=== PATIENT | female | born 1955 | race Caucasian/White ===

== ENCOUNTER → 2021-07-20 | Outpatient (CLI) | payer OTHER, MEDICAID ==
--- NOTE | 2021-07-20 14:54 | 2DMMODE ---
[place] [address] 2 D/M-MODE ECHOCARDIOGRAM Name: CESAR POTTER Room: [facility]#: [id number] Admission: 07/20/21 Attend Phys: Cesar Glass, Discharge: Date of : 53 Date of Service: 07/20/21 1454 Report #: [id number] THIS REPORT FOR: cc: DUSTIN OTTO MD, MALATHI MD Liston, Michael J. MD [facility] ~ APPROVED REPORT Study performed: 07/20/2021 14:34:57 EXAM: Comprehensive 2D, Doppler, and color-flow Echocardiogram Patient Location: Out-Patient BSA: 1.86 HR: 141 bpm Rhythm: Atrial Fibrillation Other Information Study Quality: Good Indications Chest Pain 2D Dimensions IVSd: 8.24 (7-11mm) LVOT Diam: 20.26 (18-24mm) LVDd: 44.86 mm PWd: 10.16 (7-11mm) Ascending Ao: 30.61 (22-36mm) LVDs: 30.37 (25-40mm) Aortic Root: 28.43 mm Volumes Left Atrial Volume (Systole) LA ESV Index: 20.30 mL/m2 Aortic Valve AoV Peak Macario.: 1.14 m/s AO Peak Gr.: 5.23 mmHg LVOT Max P.21 mmHg AO Mean Gr.: 2.75 mmHg LVOT Mean P.59 mmHg LVOT Max V: 0.55 m/s AO V2 VTI: 14.70 cm LVOT Mean V: 0.35 m/s SARKIS (VTI): 2.02 cm2 LVOT V1 VTI: 9.22 [place] [address] 2 D/M-MODE ECHOCARDIOGRAM Name: CESAR POTTER Room: [facility]#: [id number] Admission: 07/20/21 Attend Phys: Cesar Glass, Discharge: Date of : 53 Date of Service: 07/20/21 1454 Report #: [id number] MV Decel. Time: 219.63 ms MV PHT: 63.69 ms MVA (PHT): 3.45 cm2 TDI Medial E' Macario.: 0.09 m/s Lateral E' Macario.: 0.12 m/s Pulmonary Valve PV Peak Macario.: 0.72 m/s PV Peak Gr.: 2.06 mmHg Tricuspid Valve RAP Estimate: 5.00 mmHg TR Peak Gr.: 20.56 mmHg RVSP: 25.56 mmHg PA Pressure: 25.56 mmHg Left Ventricle The left ventricle is normal size. There is global hypokinesis with apical akinesis. There is normal left ventricular wall thickness. Left ventricular systolic function is moderately decreased. LVEF is 35-40%. This study is not technically sufficient to allow evaluation of the LV diastolic function due to atrial flutter. Right Ventricle The right ventricle is normal size. The right ventricular systolic function is normal. Atria Left atrium is dilated. Right atrium is dilated. Aortic Valve The aortic valve is normal in structure. No aortic regurgitation is present. There is no aortic valvular stenosis. Mitral Valve The mitral valve is normal in structure. Mild mitral regurgitation. No evidence of mitral valve stenosis. Tricuspid Valve The tricuspid valve is normal in structure. Mild tricuspid regurgitation. Pulmonic Valve The pulmonary valve is normal in structure. There is no [place]mon[place] [address] 2 D/M-MODE ECHOCARDIOGRAM Name: CESAR POTTER [id number] Admission: 07/20/21 Attend Phys: Cesar Glass, Discharge: Date of : 53 Date of Service: 07/20/21 1454 Report #: [id number] Great Vessels The aortic root is normal in size. IVC is normal in size and collapses >50% with inspiration. Pericardium There is no pericardial effusion. <Conclusion> The left ventricle is normal size. There is normal left ventricular wall thickness. Left ventricular systolic function is moderately decreased. LVEF is 35-40%. This study is not technically sufficient to allow evaluation of the LV diastolic function due to atrial flutter. There is global hypokinesis with apical akinesis. Left atrium is dilated. Right atrium is dilated. Mild mitral regurgitation. Mild tricuspid regurgitation. IVC is normal in size and collapses >50% with inspiration. Atrial flutter with 2 1 conduction. <ELECTRONICALLY SIGNED> By: Artemio Fregoso MD, FACC 07/20/21 1454 1454 1454 Artemio Fregoso MD, FACC /INF
== END ==
LOC: M.CRD 06-22 09:44 → M.NUC 13:00 → M.CRD 13:17
PROVIDERS: ATTEND Internal Medicine
DX: I08.1 Rheumatic disorders of both mitral and tricuspid valves (principal); I25.10 Atherosclerotic heart disease of native coronary artery without angina pectoris; R07.9 Chest pain, unspecified; R06.02 Shortness of breath; I48.20 Chronic atrial fibrillation, unspecified

== ENCOUNTER → 2021-08-10 | Outpatient (CLI) | payer OTHER, MEDICAID ==
--- NOTE | 2021-08-10 14:50 | CARDNUC ---
[place] [address] CARDIAC NUCLEAR IMAGING REPORT Name: CESAR POTTER Room: [facility]#: [id number] Admission: 08/10/21 Attend Phys: Cesar Glass, Discharge: Date of : 53 Date of Service: 08/10/21 1449 Report #: [id number] THIS REPORT FOR: cc: DUSTIN OTTO MD, MALATHI MD Biggs, F. Douglas MD [facility] ~ APPROVED REPORT Study performed: 08/10/2021 09:06:19 Exam: Nuclear Stress Test Indication: Chest pain Patient Location: Out-Patient Stress Tech: art Stress Nurse: Art Narvaez RN Ht: 5 ft 6 in Wt: 190 lbs BSA: 1.96 m2 BMI: 30.66 Medical History Medical History: Atrial Fibrillation, CAD non obstructive, COPD, Diabetes, HTN, Hyperlipidemia Medications: apixaban, atorvastatin, digoxin, zetia, lasix, metoprolol, k dur Allergies: asa, lidocaine, bactrim, chocolate, latex, iodine, flu and pneumonia vaccines Cardiac Risk Factors: Age, DM, FHX of CAD, HTN, Hyperlipidemia Exercise History: Sedentary Stress Test Details Stress Test: Pharmacologic stress testing performed using 0.4 mg of regadenoson per 5 mL given IV over 10 seconds. Reason for pharmacologic stress test: paraplegic. HR Resting HR: 115 bpm Max Heart Rate (APMHR): 153 bpm Max HR Achieved: 143 bpm Target HR (85% APMHR): 130 bpm % of APMHR: 93 Recovery HR: 138 bpm HR response to stress: Normal [place] [address] CARDIAC NUCLEAR IMAGING REPORT Name: ABBEYCESAR Room: [facility]#: [id number] Admission: 08/10/21 Attend Phys: Cesar Glass, Discharge: Date of : 53 Date of Service: 08/10/21 1449 Report #: [id number] Resting BP: 156/95 mmHg Max BP: 116/75 mmHg BP response to stress: Normal blood pressure response to stress. ECG Resting ECG: Atrial Fibrillation with nonspecific T wave abnormalities Stress ECG: Atrial fibrillation with nonspecific T wave abnormality ST Change: None Arrhythmia: Atrial fibrillation Recovery ECG: Atrial fibrillation with nonspecific T wave abnormalities Recovery ST Change: None Recovery Arrhythmia: Atrial fibrillation Clinical Reason for Termination: Completed protocol Stress Symptoms: None Stress ECG Conclusion Normal hemodynamic response to pharmacologic stress. Clinical: Non-ischemic Non-diagnostic pharmacologic EKG stress due to failure to attain target HR. NM EXAM: Myocardial Perfusion REST/STRESS Resting Data Rest SPECT myocardial perfusion imaging was performed in supine position 30 minutes following the intravenous injection of 10.6 mCi of Tc-99m Sestamibi. Time of rest injection: 07:55 The images were gated to evaluate regional wall motion and calculate left ventricular ejection fraction. Administration Route: IV Administration Site: Left Pharmacologic Stress Pharmacologic stress test was performed by injecting Regadenoson 0.4 mg IV push followed by the intravenous injection of 30.1 mCi of Tc-99m Sestamibi. Time of stress injection: 09:10 Administration Route: IV Administration Site: [place] [address] CARDIAC NUCLEAR IMAGING REPORT Name: ABBEYCESAR Room: [facility]#: [id number] Admission: 08/10/21 Attend Phys: Cesar Glass, Discharge: Date of : 53 Date of Service: 08/10/21 1449 Report #: [id number] Heart Rate at time of stress injection: 135 bpm. Gated Stress SPECT was performed 45 minutes after stress injection. The images were gated to evaluate regional wall motion and calculate left ventricular ejection fraction. Study Quality Study: Good Artifact: No artifact No artifact Lung Uptake: Normal Study Data At rest, the left ventricular ejection fraction was 59%.. Post stress, the left ventricular ejection was 31%.. SSS: 7 SRS: 8 SDS: -1 TID = 1.16. Perfusion The resting study demonstrated a small mild lateral defect. There was excessive bowel uptake however. The post stress images were normal. There were no clear-cut defects. There was however again excessive bowel uptake Images were reviewed using SPARQ. Wall Motion Normal left ventricular wall motion. Nuclear Conclusion ECG Findings: non-diagnostic Clinical Findings: negative for ischemia Nuclear Findings: negative for ischemia Exercise Capacity: not assessed Left Ventricular Function: normal at rest but diminished post Lexiscan Risk Study: low Normal study. No scintigraphic evidence for myocardial ischemia or scar. <Conclusion> Normal hemodynamic response to pharmacologic stress. Clinical: [place] [address] CARDIAC NUCLEAR IMAGING REPORT Name: CESAR POTTER Room: [facility]#: [id number] Admission: 08/10/21 Attend Phys: Cesar Glsas, Discharge: Date of : 53 Date of Service: 08/10/211448 Report #: [id number] Non-diagnostic pharmacologic EKG stress due to failure to attain target HR. <ELECTRONICALLY SIGNED> By: Cesar Glass MD, FACC 08/10/211448 48 48 Cesar Glass MD, FACC /INF
== END ==
LOC: M.NUC 07-29 15:25
PROVIDERS: ATTEND Internal Medicine
DX: I25.10 Atherosclerotic heart disease of native coronary artery without angina pectoris (principal); I48.20 Chronic atrial fibrillation, unspecified